=== PATIENT | male | born 1945 | race Caucasian/White ===

== ENCOUNTER 2016-09-23 11:57 | Emergency (ER) | payer MEDICARE, BC ==
--- NOTE | 2016-09-23 12:36 | ERNOTE ---
Upper Extremity HPI - Narrative Date of Service: 09/23/16 - General Extremities Pain Location: shoulder: left Time Seen by Provider: 09/23/16 12:17 Source: patient Exam Limitations: no limitations - Immun/Allergies/Home Medications Allergies/Adverse Reactions: Allergies Allergy/AdvReac Type Severity Reaction Status Date / Time erythromycin base AdvReac Mild Diarrhea Verified 09/23/16 12:05 Home Medications: HOME MEDICATIONS Aspirin [Aspirin EC] 81 mg PO DAILY 08/24/15 [Last Taken Unknown] Fluticasone Propionate [Flonase] 2 spray NS BID 08/24/15 [Last Taken Unknown] Ibuprofen [Motrin] 800 mg PO Q8H PRN 08/24/15 [Last Taken Unknown] Levothyroxine Sodium [Synthroid] 88 mcg PO DAILY 08/24/15 [Last Taken Unknown] Multivitamins [Multivitamin Kirill] 1 cap PO DAILY 08/24/15 [Last Taken Unknown] metFORMIN HCL [Glucophage] 1,000 mg PO BIDWM 08/24/15 [Last Taken Unknown] - History of Present Illness Narrative: Pt. comes in with c/o L shoulder pain after he was helping someone lift a book shelf yesterday. Pt. denies any numbness tingling, SOB, CP, NVD, fever. Pt. states that Ibuprofen improves the pain but irritates his stomach and movement exacerbates the pain. Review of Systems - Review of Systems Constitutional: Present: no symptoms reported. Absent: fever, chills, weakness , fatigue, malaise EYE: Present: no symptoms reported ENT: Present: no symptoms reported Respiratory: Present: no symptoms reported. Absent: shortness of breath, cough , wheezing Cardiology: Present: no symptoms reported. Absent: chest pain, palpitations, edema Gastrointestinal/Abdominal: Present: no symptoms reported. Absent: nausea, vomiting, diarrhea Genitourinary: Present: no symptoms reported Musculoskeletal: Present: joint pain - L shoulder. Absent: back pain, neck pain Skin: Present: no symptoms reported Neurological: Present: no symptoms reported. Absent: headache, dizziness/light- headedness, numbness, tingling All Other Systems: All systems neg except as marked - Patient's Past Medical History Patient History - Medical: Diabetes Type 2, Hypothyroidism, Kidney stone, Osteoarthritis Patient History - Cardiac/Respiratory: Hyperlipidemia Patient History - Cancer: No Hx of Cancer Patient History - Surgical Procedures: Colonoscopy, Other Patient History - Other: None - Family History Mother Family History - Medical: No pertinent hx Family History - Cardiac/Respiratory: No pertinent hx - Social History Living Situations: home Abuse History: No History of abuse Psych History: No pertinent hx Alcohol Use: none Drug Use: none Physical Exam - Physical Exam General Appearance: Present: wd/wn, alert, no apparent distress Eye Exam: Normal inspection: bilateral, PERRL: bilateral, EOMI: bilateral Ears, Nose, Throat: Present: normal ENT inspection, normal pharynx Neck: Present: normal inspection, nontender. Absent: lymphadenopathy (R), lymphadenopathy (L) Respiratory: Present: no respiratory distress, normal breath sounds, no accessory muscle use, chest nontender, lungs clear Cardiovascular/Chest: Present: regular rate, rhythm, no murmur, normal peripheral pulses Gastrointestinal/Abdominal: Present: normal bowel sounds, nontender, nondistended, soft, no organomegaly Back Exam: Present: normal inspection, normal range of motion, no CVA tenderness , no vertebral tenderness Extremity Exam: Present: no edema, decreased range of motion - anterior flexion , other - pain in Bicep attachment ac joint Neurological Exam: Present: alert, oriented, normal mood/affect, no motor/ sensory deficits, strong nitric operator II-XII nml as tested, normal cerebellar test Skin Exam: Present: normal color, warm/dry. Absent: pallor, skin rash ED Progress - Vital Signs Patient's Vital Signs:: I have reviewed the patient's vital signs. Vital Signs: Vital Signs 09/23/16 12:01 Temperature 36.7 C Pulse Rate 57 L Respiratory 12 Rate Blood Pressure 153/89 O2 Sat by Pulse 96 Oximetry - X-Ray X-Ray #1 X-Ray: shoulder Interpretation: Reviewed by me X-ray Comments: no acute - Progress/Reassessment Chief Complaint: Shoulder Injury/Pain Progress:: Improved Departure Clinical Impression: Shoulder strain Qualifiers: Encounter type: initial encounter Laterality: left Qualified Code(s): S46.912A - Strain of unspecified muscle, fascia and tendon at shoulder and upper arm level, left arm, initial encounter - Departure Disposition: Home self-care Condition: Good Instructions: Tendon Injury Additional Instructions: Please continue Ibuprofen as needed for pain. Alternate heat and Ice for pain. Follow up with orthopedics for treatment next week and wear sling at all times. Referrals: Cong Fowler DO [Primary Care Provider] -
[2016-09-23 13:37] VITALS: BP 176/92
== END 2016-09-23 13:59 | disposition home or self-care (01) ==
LOC: ER 11:57
DX: S46.912A Strain of unspecified muscle, fascia and tendon at shoulder and upper arm level, left arm, initial encounter (principal); E11.9 Type 2 diabetes mellitus without complications; E03.9 Hypothyroidism, unspecified; E78.5 Hyperlipidemia, unspecified; M19.90 Unspecified osteoarthritis, unspecified site; X58.XXXA Exposure to other specified factors, initial encounter; Y93.89 Activity, other specified; Y92.9 Unspecified place or not applicable

== ENCOUNTER 2017-02-28 06:24 | Day surgery (SDC) | payer MEDICARE, BC ==
[~2017-02-28 06:24] MED LIST: RINGER'S SOLUTION,LACTATED 1,000 ML IV PRN; ceFAZolin SODIUM 1 GM VIAL IV PRN
[2017-02-28] MEDS ORDERED: RINGER'S SOLUTION,LACTATED 1,000 ML IV ONE ×2 (07:30→09:50)
--- NOTE | 2017-02-28 10:18 | OR ---
Operative Report - Dictated Report Narrative: Date: 02/28/2017 Physician: Theodore Ugalde M.D. Director Operations Broadcast: Maximilian Weinberg PA-C Preoperative diagnosis: Left Shoulder chronic massive rotator cuff tear, acromioclavicular arthrosis resulting impingement, biceps tendinopathy Postoperative diagnosis: Left Shoulder chronic massive rotator cuff tear involving the supra and infraspinatus, acromial clavicular arthrosis resulting impingement, biceps tendinopathy Procedure: Left shoulder arthroscopy with mini open rotator cuff repair of massive rotator cuff tear, Samuel procedure, biceps tenotomy Anesthesia: General plus regional Complications: None Estimated blood loss: Minimal Specimens: Bone for disposal Retained implants: [employer] 4.5 mm peek helicoil anchor 2, footprint anchor 2 Drains: None Indications: Mr. Bush Is a 71 year-old gentleman who has been followed in my clinic with complaints of shoulder pain consistent acute increased chronic shoulder pain concerning for rotator cuff tear. Physical exam and diagnostic imaging were consistent with his complaints and concern for full-thickness rotator cuff tear as well as acromial clavicular arthrosis. Conservative measures have failed including, but not limited to, passage of time, activity modification, medications, physical therapy/home exercise program, or injections. The risks, benefits, and alternatives were discussed in clinic. The risks being , bleeding, infection, blood clots, nerve, tendon, ligament, blood vessel injury, persistent pain, arthrosis, stiffness, need for prolonged therapy, need for additional procedures, and persistent symptoms. Consent was obtained in the clinic. Procedure: After marking the correct extremity in the preoperative holding area, a timeout was performed in the operating room. IV antibiotics consisting of Ancef were administered prior to the procedure. A general followed by regional anesthetic was induced by the nurse jawbone breaker per my request. This was in the supine position, then the patient was transitioned to a beachchair position with all bony prominences well-padded, head in neutral, the nonoperative arm well supported, and the legs padded with SCDs in place. The operative shoulder was then prepped and draped in a standard sterile fashion. Preoperatively the shoulder had near full passive range of motion, and no gross instability. After marking out the bony landmarks, saline was infused into the joint through a posterior lateral portal site. A cecilia incision was made, and the blunt trocar and cannula was introduced into the shoulder joint. An accessory portal was placed in the rotator cuff interval using a spinal needle for guidance. Upon initial evaluation, the biceps tendon showed tendinopathy and flattening with subluxation anteriorly. The middle glenohumeral ligament was unremarkable. Subscapularis tendon was unremarkable. The glenoid showed no arthrosis. The humeral head articular surface showed no arthrosis. The anterior labrum was small but intact. The superior labrum was intact. The pouch was unremarkable. The posterior labrum was unremarkable. The supraspinatus tendon was torn and retracted to the level of the glenoid. The infraspinatus tendon was torn and retracted with the supraspinatus back to the level of the glenoid. Using arthroscopic scissors biceps was tenotomized as it inserted on the labrum. A lateral portal was made and utilizing tissue liberators the rotator cuff tendon was attempted to be mobilized laterally. Review of the reach near the tuberosity but not excessively beyond. Attention was then turned to the subacromial space. Subacromial bursectomy was performed utilizing the prior portals. The coracoacromial ligament was frayed but intact. The bursal side of the rotator cuff demonstrated a full- thickness tear as identified intra-articularly. The acromial arch was unremarkable. Attention was then turned to the distal clavicle. A longitudinal incision was made over the acromioclavicular joint. This was sharply dissected down to the chromic clavicular capsule. Cautery was utilized for hemostasis. A longitudinal capsulotomy was made and elevated off the anterior posterior aspects of the distal clavicle. There is notable hypertrophic bone and loss of joint space between the acromion and clavicle. Protecting the surrounding soft tissues, an oscillating saw was utilized in order to resect approximately 7-10 mm of bone from the distal clavicle. The remaining clavicle was stable after removing this. The shoulders place a range of motion and showed no remaining impingement between the acromion and the clavicle. Wounds were then thoroughly irrigated. The capsule was closed with interrupted 0 Vicryl to subcutaneous tissue with 3-0 Monocryl. Skin was closed with 4-0 nylon. Based on the arthroscopic findings, as well as exam and radiographic findings, it was elected to proceed with a mini open rotator cuff repair. A longitudinal incision centered over the previously identified rotator cuff tear was made just off the edge of the acromion. This was approximately 5 centimeters in length. The deltoid fascia was split sharply in line with its fibers, and blunt dissection was carried through the deltoid muscle. Any remaining subacromial bursal tissue was debrided in order to expose the underlying rotator cuff tear. The rotator cuff tear appeared to be L-shaped orientation. The most posterior aspect of the infraspinatus was still intact and appear to be an intrasubstance tendon is tear of the supra and anterior infraspinatus. The tuberosity was debrided of its soft tissues producing a bleeding bed for the tendon to be secured to. 2 4.5 mm PEEK helicoil anchor was placed just off the articular surface of the humeral head. A series of horizontal mattress sutures as well as convergent sutures were placed at the prepared edge of the rotator cuff. This allowed for the tendon to be mobilized to the tuberosity edge. The sutures were then passed longitudinally into to 4.5 mm PEEK footprint anchor. This was performed and a suture bridge technique. This gave good overall compression to the rotator cuff at the insertion site. The shoulders place a range of motion and had no lift off of the repair site as well as no crepitance or signs of impingement. Full passive range of motion was able to be obtained. Once it was felt that the rotator cuff was adequately repaired, the wounds were thoroughly irrigated. 0 Vicryl was utilized in order to repair the deltoid fascia. 3-0 Monocryl was placed in the subcutaneous tissue. The rotator cuff incision as well as the portal sites were closed with interrupted nylon. Dressings consisting of Xeroform, 4 x 4, ABD, soft roll, and tape were applied. All sponge, needle, blade, and instrument counts were correct prior to closing the wounds. The patient was awoken and transferred to the postanesthesia care unit in stable condition.
[2017-02-28 13:03] VITALS: BP 130/71
== END 2017-02-28 06:25 | disposition home or self-care (01) ==
LOC: AMB 06:24
PROVIDERS: ATTEND Orthopaedic Surgery
PROC: 0LQ20ZZ Repair Left Shoulder Tendon, Open Approach (ICD-10-PCS; 2017-02-28)
PROC: 0RHK04Z Insertion of Internal Fixation Device into Left Shoulder Joint, Open Approach (ICD-10-PCS; 2017-02-28)
PROC: 0PBB0ZZ Excision of Left Clavicle, Open Approach (ICD-10-PCS; 2017-02-28)
PROC: 0RBK4ZZ Excision of Left Shoulder Joint, Percutaneous Endoscopic Approach (ICD-10-PCS; principal; 2017-02-28 08:00)
DX: M75.102 Unspecified rotator cuff tear or rupture of left shoulder, not specified as traumatic (principal); M19.012 Primary osteoarthritis, left shoulder; M75.42 Impingement syndrome of left shoulder; M75.22 Bicipital tendinitis, left shoulder; E11.9 Type 2 diabetes mellitus without complications; E78.5 Hyperlipidemia, unspecified; E03.9 Hypothyroidism, unspecified; N40.0 Benign prostatic hyperplasia without lower urinary tract symptoms; Z68.30 Body mass index [BMI] 30.0-30.9, adult

== ENCOUNTER 2017-05-17 11:24 | Observation (INO) | payer MEDICARE, BC ==
[2017-05-17] MEDS ORDERED: LABETALOL HCL 5 MG/ML VIAL IV ONE (11:48)
--- NOTE | 2017-05-17 12:07 | ERNOTE ---
Neuro HPI ER Record Presenting Symptoms: numbness Time Seen by Provider: 05/17/17 11:35 Source: patient Exam Limitations: no limitations Immunizations: IMMUNIZATION HX Immunizations Up to Date Yes History of Influenza Vaccine Yes Hx Pneumococcal Vaccination Yes Allergies/Adverse Reactions: Allergies Allergy/AdvReac Type Severity Reaction Status Date / Time erythromycin base AdvReac Mild Diarrhea Verified 02/28/17 07:08 Home Medications: HOME MEDICATIONS Aspirin [Aspirin EC] 81 mg PO DAILY 08/24/15 [Last Taken 02/26/17 18:00] metFORMIN HCL [Glucophage] 1,000 mg PO BIDWM 08/24/15 [Last Taken Unknown] Levothyroxine Sodium [Synthroid] 100 mcg PO DAILY 02/06/17 [Last Taken Unknown] - History of Present Illness Narrative: Patient had an episode of right hand and right-sided facial numbness while he was driving just prior to arrival. Both the right hand and the right side of the face had improved by the time he gets emergency department, but while he was in the emergency Department the right-sided facial numbness increased a small amount. Patient denies any other complaint. Onset: sudden onset Severity: mild Context: other - Character of Deficits Altered sensation: Present: RUE, facial (rt) - numbness as described Baseline Cognition: Present: alert, oriented x 4 Baseline Gait: Present: walks w/o assistance Associated Symptoms: Reports: none Review of Systems - Review of Systems Constitutional: Present: See HPI EYE: Present: no symptoms reported ENT: Present: no symptoms reported Respiratory: Present: no symptoms reported Cardiology: Present: no symptoms reported Gastrointestinal/Abdominal: Present: no symptoms reported Genitourinary: Present: no symptoms reported Musculoskeletal: Present: no symptoms reported Skin: Present: no symptoms reported Neurological: Present: See HPI Endocrine: Present: no symptoms reported Hematologic/Lymphatic: Present: no symptoms reported Psych: Present: no symptoms reported - Patient's Past Medical History Patient History - Medical: Diabetes Type 2, Hypothyroidism, Kidney stone, Osteoarthritis Patient History - Cardiac/Respiratory: Hyperlipidemia Patient History - Cancer: No Hx of Cancer Patient History - Surgical Procedures: Back Surgery, Colonoscopy, Other Patient History - Other: None - Family History Mother Family History - Medical: , No pertinent hx Family History - Cardiac/Respiratory: No pertinent hx Family History - Cancer: No pertinent family hx Father Family History - Medical: , Other Family History - Cardiac/Respiratory: No pertinent hx Family History - Cancer: No pertinent family hx - Social History Living Situations: spouse Abuse History: No History of abuse Psych History: No pertinent hx Smoking Status: Never smoker Have you smoked in the past 12 months: No Do you dip or chew tobacco: No Alcohol Use: rarely Drug Use: none - Immunizations Immunizations Up to Date: Yes Hx Pneumococcal Vaccination: Yes History of Influenza Vaccine: Yes Physical Exam - Physical Exam General Appearance: Present: wd/wn, alert, no apparent distress Eye Exam: Normal inspection: bilateral, PERRL: bilateral Ears, Nose, Throat: Present: normal ENT inspection, H, normal pharynx Neck: Present: normal inspection, nontender Respiratory: Present: no respiratory distress, normal breath sounds, no accessory muscle use, chest nontender, lungs clear Cardiovascular/Chest: Present: regular rate, rhythm, no murmur, normal peripheral pulses Gastrointestinal/Abdominal: Present: normal bowel sounds, nontender, nondistended, soft, no organomegaly Rectal Exam: Present: deferred Back Exam: Present: normal inspection, normal range of motion Extremity Exam: Present: normal inspection, non-tender, no edema, normal range of motion Neurological Exam: Present: alert, oriented, normal mood/affect Skin Exam: Present: normal color, warm/dry Lymphatic Exam: Present: no adenopathy [place] Coma Scale - Assess Eye Opening: Spontaneous Motor: Obeys Commands Verbal: Oriented - Total Coma Scale Total: 15 ED Progress - Results and Orders Patient's Lab Results:: I have reviewed the patient's lab results. - Vital Signs Patient's Vital Signs:: I have reviewed the patient's vital signs. Vital Signs: Vital Signs 05/17/17 05/17/17 11:31 11:49 Temperature 36.1 C L Pulse Rate 67 67 Respiratory 14 21 H Rate Blood Pressure 184/96 184/96 O2 Sat by Pulse 99 97 Oximetry - EKG EKG: NSR - X-Ray X-Ray #1 X-Ray: chest Interpretation: Reviewed by me - CT/Ultrasound CT/Ultrasound Narrative: CT the head was reviewed - Progress/Reassessment Chief Complaint: CerebroVascular Accident Plan - Plan Plan: All the symptoms are continuing to fluctuate and patient will be admitted for neuro checks and telemetry. I discussed the case with Dr. Fowler and he agrees to admit and will arrange for all the appropriate outpatient testing as needed. Departure Clinical Impression: TIA (transient ischemic attack) Qualifiers: Transient cerebral ischemia type: unspecified Qualified Code(s): G45.9 - Transient cerebral ischemic attack, unspecified - Departure Disposition: [facility] Condition: Fair
[2017-05-17 12:09] LABS: Hemoglobin 15.7 gm/dL (13.5-18.0); Mean Cell Volume 88.8 fl (78-100); Mean Corpuscular Hgb Conc 34.9 g/dl (32-36); Mean Platelet Volume 10.2 fl (6.0-9.5); Neutrophil # 3.7 K/mm3 (1.3-6.0); Neutrophil % 52.3 % (42-75.0); Platelet Count 200 K/mm3 (150-450); Red Blood Count 5.07 M/mm3 (4.7-6.0); Red Cell Distribution Width 13.2 % (11.5-14.0)
[2017-05-17 12:20] LABS: INR 1.08 INR (0.90-1.10); Partial Thrombolplastin Time 22.9 Seconds (24-32); Prothrombin Time (Patient) 10.8 Seconds (9.0-11.0)
[2017-05-17 12:24] LABS: Albumin * 4.3 gm/dl (3.4-5.0); BUN/Creatinine Ratio 13.4 (9.0-21.6); Bilirubin, Total 0.6 mg/dL (0.0-1.1); Calcium * 9.6 mg/dL (7.9-10.9); Carbon Dioxide 29.9 mmol/L (24-32.6); Magnesium 1.8 mg/dL (1.2-2.8); Potassium 3.9 mmol/L (3.4-4.6)
--- NOTE | 2017-05-17 23:48 | HP ---
Chief Complaint - Chief Complaint Date of Service: 05/17/17 Time of Service: 17:00 Chief Complaint: Right arm tingling, right face tingling History of Present Illness: Femi is a 71 yo male that presented to the [facility] ER with right cheek and right arm tingling. By the time he arrived to the ER symptoms were improving. He had a head CT that was negative for acute change. Do to the neurological changes the ER requested admission for neurological monitoring. Upon my evaluation he reports he has had right arm numbness off and on for years. He reports as a younger adult he had a pitchfork through the elbow that irritated his ulnar nerve. Since then he has had occasional tingling of his ulnar nerve. He does report that this was a little more than he normally experiences. He did report doing bicep exercises so he has been doing more elbow movement lately. He reports sinus pressure, pain, congestion, runny nose, cough for the last week with right sided facial tingling/numbness starting today. Numbness and tingling in face and arm are resolved and he feels back to his usual. - Patient's Past Medical History Patient History - Medical: Diabetes Type 2, Hypothyroidism, Kidney stone, Osteoarthritis Patient History - Cardiac/Respiratory: Hyperlipidemia Patient History - Cancer: No Hx of Cancer Patient History - Surgical Procedures: Back Surgery, Colonoscopy, Other Patient History - Other: None - Family History Mother Family History - Medical: , No pertinent hx Family History - Cardiac/Respiratory: No pertinent hx Family History - Cancer: No pertinent family hx Father Family History - Medical: , Other Family History - Cardiac/Respiratory: No pertinent hx Family History - Cancer: No pertinent family hx - Social History Living Situations: spouse Abuse History: No History of abuse Psych History: No pertinent hx Smoking Status: Never smoker Have you smoked in the past 12 months: No Do you dip or chew tobacco: No Alcohol Use: rarely Drug Use: none - Immunizations Immunizations Up to Date: Yes Hx Pneumococcal Vaccination: Yes History of Influenza Vaccine: Yes Review Of Systems (GEN) - Review of Systems Generalized/Overall Review: Absent: Weakness, Chills, Fever EENTM: Present: Nose Congestion, Other - Right facial numbness/tingling, sinus pain/pressure, runny nose. Absent: Eye Pain, Blurred Vision, Ear Pain, Nose Pain Respiratory: Present: Cough. Absent: Shortness of Breath Cardiac: Absent: Chest Pain, Edema Abdominal: Absent: Nausea, Vomiting Genitourinary: Present: No Symptoms Reported Neurological: Present: No Symptoms Reported Skin: Present: No Symptoms Reported Endocrine: Present: No Symptoms Reported Immunizations: IMMUNIZATION HX Immunizations Up to Date Yes History of Influenza Vaccine Yes Hx Pneumococcal Vaccination Yes Allergies/Adverse Reactions: Allergies Allergy/AdvReac Type Severity Reaction Status Date / Time erythromycin base AdvReac Mild Diarrhea Verified 02/28/17 07:08 Home Medications: HOME MEDICATIONS Aspirin [Aspirin EC] 81 mg PO DAILY 08/24/15 [Last Taken 02/26/17 18:00] metFORMIN HCL [Glucophage] 1,000 mg PO BIDWM 08/24/15 [Last Taken Unknown] Levothyroxine Sodium [Synthroid] 100 mcg PO DAILY 02/06/17 [Last Taken Unknown] Amox Tr/Potassium Clavulanate [Augmentin 875-125 Tablet] 875 mg PO Q12H #28 tab 05/18/17 [Last Taken Unknown] Lisinopril [Prinivil] 10 mg PO DAILY #30 tablet 05/18/17 [Last Taken Unknown] Exam - Exam Vital Signs: Vital Signs - Last Taken Temp 36.9 C 05/17/17 21:00 Pulse 60 05/17/17 23:35 Resp 20 05/17/17 21:00 BP 148/86 05/17/17 21:00 Pulse Ox 97 05/17/17 21:00 Constitutional: Present: Alert, Oriented x3, Cooperative ENT Exam: Present: hearing grossly normal, pharynx normal, other - Right maxillary sinus tenderness Eye Exam: bilateral eye: normal inspection Neck: Present: normal inspection Respiratory: Present: chest non-tender, lungs clear, normal breath sounds Cardiovascular/Chest: Present: regular rate, rhythm, no murmur Abdomen: Present: Normal bowel sounds, soft, nontender, nondistended Extremity: Present: normal inspection Skin Exam: Present: normal color, warm/dry, no cyanosis Lymphatic: Present: no adenopathy Neurologic: Present: no motor/sensory deficits, alert, normal mood/affect, oriented x 3. Absent: abnormal gait, facial droop, motor weakness, sensory deficit Appearance: Present: appropriate appearance, appropriate insight Eye contact: Present: cooperative, good eye contact, normal speech Diagnostic Studies: Laboratory Results WBC 7.0 K/mm3 (4.0-10.5) 05/17/17 12:00 RBC 5.07 M/mm3 (4.7-6.0) 05/17/17 12:00 Hgb 15.7 gm/dL (13.5-18.0) 05/17/17 12:00 Hct 45.0 % (42.0-52.0) 05/17/17 12:00 MCV 88.8 fl (78-100) 05/17/17 12:00 MCH 31.0 pg (27-31) 05/17/17 12:00 MCHC 34.9 g/dl (32-36) 05/17/17 12:00 RDW 13.2 % (11.5-14.0) 05/17/17 12:00 Plt Count 200 K/mm3 (150-450) 05/17/17 12:00 MPV 10.2 fl (6.0-9.5) H 05/17/17 12:00 Immature Gran % (Auto) 0.10 % (0.001-0.429) 05/17/17 12:00 Immature Gran # (Auto) 0.01 K/mm3 (0.000-0.0310) 05/17/17 12:00 Neutrophils % 52.3 % (42-75.0) 05/17/17 12:00 Lymphocytes % 35.9 % (20-51) 05/17/17 12:00 Monocytes % 9.8 % (0.0-9) H 05/17/17 12:00 Eosinophils % 1.3 % (0.0-3.0) 05/17/17 12:00 Basophils % 0.6 % (0.0-1.0) 05/17/17 12:00 Nucleated RBC % 0.0 k/mm3 (0-1) 05/17/17 12:00 Neutrophils # 3.7 K/mm3 (1.3-6.0) 05/17/17 12:00 Lymphocytes # 2.5 k/mm3 (1.5-3.5) 05/17/17 12:00 Monocytes # 0.7 k/mm3 (0.0-1.0) 05/17/17 12:00 Eosinophils # 0.1 k/mm3 (0.0-0.7) 05/17/17 12:00 Absolute Basophils 0.0 k/mm3 (0.0-0.1) 05/17/17 12:00 PT 10.8 Seconds (9.0-11.0) 05/17/17 12:00 INR (Anticoag Therapy) 1.08 INR (0.90-1.10) 05/17/17 12:00 PTT (Abram) 22.9 Seconds (24-32) L 05/17/17 12:00 Sodium 139 mmol/L (132-142) 05/17/17 12:00 Plasma Sodium 139 mmol/L (130-142) 05/17/17 12:00 Potassium 3.9 mmol/L (3.4-4.6) 05/17/17 12:00 Chloride 100 mmol/L (97-106) 05/17/17 12:00 Carbon Dioxide 29.9 mmol/L (24-32.6) 05/17/17 12:00 Anion Gap 13.0 mmol/L (6.8-13.8) 05/17/17 12:00 BUN 16 mg/dL (6-23) 05/17/17 12:00 Creatinine 1.19 mg/dL (0.4-1.4) 05/17/17 12:00 Est GFR (Non-Af Amer) 64 mL/min (60-130) 05/17/17 12:00 BUN/Creatinine Ratio 13.4 (9.0-21.6) 05/17/17 12:00 Random Glucose 129 mg/dL (70-110) H 05/17/17 12:00 Calcium 9.6 mg/dL (7.9-10.9) 05/17/17 12:00 Calcium Adj for Albumin 9.0 mg/dL (8.4-10.2) 05/17/17 12:00 Magnesium 1.8 mg/dL (1.2-2.8) 05/17/17 12:00 Total Bilirubin 0.6 mg/dL (0.0-1.1) 05/17/17 12:00 AST 41 U/L (0-48) 05/17/17 12:00 ALT 71 U/L (19-67) H 05/17/17 12:00 Alkaline Phosphatase 70 U/L (50-170) 05/17/17 12:00 Total Protein 8.0 gm/dL (6.2-8.2) 05/17/17 12:00 Albumin 4.3 gm/dl (3.4-5.0) 05/17/17 12:00 Assessment/Plan - Narrative Narrative: Femi is a 71 yo male with: 1) Right Maxillary Sinusitis - Will treat with antibiotics, due to pain. Suspect this caused the facial tingling/numbness due to inflammation of nerves in the area. 2) Right Cubital Tunnel Syndrome - Chronic, but likely exacerbated from the bicep curls he has been doing recently 3) Numbness/Tingling - Concern due to the acute onset of right sided symptoms that he may be having a stroke vs TIA. The symptoms have now resolved, or atleast returned to his baseline. Will admit to observation for neurochecks, but I feel the symptoms are more likely explained by Sinusitis and cubital Tunnel syndrome. If neuro checks remain normal overnight will plan to discharge to home in the morning. - Assessment/Plan (1) Acute non-recurrent maxillary sinusitis Problem: Acute (2) Cubital tunnel syndrome on right Problem: Acute
[2017-05-18 06:55] VITALS: BP 147/86
--- NOTE | 2017-05-18 07:58 | DS ---
(1) Acute non-recurrent maxillary sinusitis Problem: Acute (2) Cubital tunnel syndrome on right Problem: Acute (3) Essential hypertension Problem: Acute Description of Stay: Femi is a 71 yo male that was admitted for possible TIA/Stroke. He had acute onset of right facial numbness/tingling and worsening right arm tingling/ numbness. He thought that he may be having a stroke and went to the ER. Initial evaluation in the ER showed no acute changes on head CT. His symptoms resolved. On evaluation I believed his symptoms to be due to right maxillary sinusitis and exacerbation of his chronic right cubital tunnel syndrome due to the biceps exercises he has been doing lately to strengthen his left shoulders. He was admitted to observation with neurochecks. These were normal and unchanged. The following morning he was doing well and discharged to home. Will treat acute maxillary sinusitis with augmentin BID x 14 days. He will follow up in 1 week. Procedures Performed: none Discharge Disposition: Home self care Disposition: Home self-care Condition: Fair Discharge Diet: General/regular food Referrals: Cong Fowler DO [Primary Care Provider] - Two Weeks Problem Oriented Discharge Instructions to Patient/Family: Sinusitis, Adult, [id number], Hypertension, [id number] Additional Patient Instructions (free text): Follow up with on 05-31-17 @ 10:00am. Prescriptions (Any new or edited meds): Amox Tr/Potassium Clavulanate [Augmentin 875-125 Tablet] 875 mg PO Q12H #28 tab Lisinopril [Prinivil] 10 mg PO DAILY #30 tablet Complete Home Medications List: Complete Home Medication List: Aspirin [Aspirin EC] 81 mg PO DAILY 08/24/15 metFORMIN HCL [Glucophage] 1,000 mg PO BIDWM 08/24/15 Levothyroxine Sodium [Synthroid] 100 mcg PO DAILY 02/06/17 Amox Tr/Potassium Clavulanate [Augmentin 875-125 Tablet] 875 mg PO Q12H #28 tab 05/18/17 Lisinopril [Prinivil] 10 mg PO DAILY #30 tablet 05/18/17
== END 2017-05-18 09:05 | disposition home or self-care (01) ==
LOC: ER 11:24 → MS 12:14
PROVIDERS: ADMIT Family Medicine; ATTEND Family Medicine
DX: E78.5 Hyperlipidemia, unspecified; G93.89 Other specified disorders of brain; J01.00 Acute maxillary sinusitis, unspecified; E11.9 Type 2 diabetes mellitus without complications; G56.21 Lesion of ulnar nerve, right upper limb; I10 Essential (primary) hypertension; M19.90 Unspecified osteoarthritis, unspecified site; E03.9 Hypothyroidism, unspecified
CPT/HCPCS: 36415; 70450; 71046; 80053; 83735; 85025; 85610; 85730; 93005; 99285; G0378